=== PATIENT | male | born 1945 | race Caucasian/White ===

== ENCOUNTER → 2016-11-28 | Outpatient (CLI) | payer MEDICARE, OTHER ==
[~2016-11-28] MED LIST: IOHEXOL 350 MG/ML 150 ML (OMNIPAQUE 350) VIAL IV ONE; NS 100 ML (IVPB) BAG IV ONE
[2016-11-28 15:39] LABS: ALBUMIN 3.7 G/DL (3.2-4.5); BILIRUBIN,TOTAL 0.8 MG/DL (0.1-1.0); CALCIUM 8.5 MG/DL (8.5-10.1); CREATININE SERUM 1.49 MG/DL (0.60-1.30); POTASSIUM 3.9 MMOL/L (3.6-5.0); TOTAL PROTEIN 6.4 G/DL (6.4-8.2)
--- NOTE | 2016-11-28 17:29 | Diagnostic Imaging Report ---
PROCEDURE: CT angiography of the chest with contrast. TECHNIQUE: Multiple contiguous axial images were obtained through the chest after uneventful bolus administration of intravenous contrast. Reconstructed CTA MIP acquisitions were also performed. DATE: November 28, 2016. COMPARISON: None. INDICATION: A 71-year-old male, shortness of breath. History of COPD. FINDINGS: There are prominent changes of predominantly centrilobular emphysema. There is no identified pulmonary nodule. There are predominantly linear opacities just above the left hemidiaphragm that likely relate to atelectasis and/or scarring. There is scarring and/or atelectasis in the right middle lobe. There is no additional focal airspace consolidation. There is no pneumothorax. There is no pleural effusion. The central airways are patent. There is no identified pulmonary embolus. The main pulmonary artery is normal in caliber. The heart is not enlarged. There are atherosclerotic calcifications. There are subcentimeter short axis mediastinal lymph nodes which do not meet CT size criteria for adenopathy. There are no abnormally enlarged axillary lymph nodes. There are multiple low-attenuation lesions within the liver. There is a 13 mm lesion in the left lobe of the liver on image 137 with additional low-attenuation lesions in the liver seen on this image also compatible with benign hepatic cysts. There is a low-attenuation lesion in the liver on axial image 159 measuring 9 mm in size which is not able to be definitively characterized with Hounsfield attenuation of 18. Additional limited evaluation of the visualized portions of the upper abdomen is unremarkable. There is no identified acute bony abnormality. IMPRESSION: CT CHEST: 1. Extensive changes of predominantly centrilobular emphysema. 2. No identified pulmonary embolus or acute cardiopulmonary abnormality. Dictated by: Dictated on workstation # [id number]
== END ==
LOC: RAD 14:51
PROVIDERS: ATTEND Nurse Practitioner Family
DX: R06.02 Shortness of breath (principal); R09.02 Hypoxemia; R50.9 Fever, unspecified; J44.9 Chronic obstructive pulmonary disease, unspecified
CPT/HCPCS: 36415; 71275; 80053; 83880; 87070; 87077; 87186; 87205

== ENCOUNTER → 2016-12-27 | Outpatient (CLI) | payer MEDICARE, OTHER ==
[2016-12-27 15:32] LABS: BASOPHILS % (AUTO) 1 % (0-10); EOSINOPHILS # (AUTO) 0.1 10^3/uL (0.0-0.3); EOSINOPHILS % (AUTO) 2 % (0-10); LYMPHOCYTES # (AUTO) 1.9 X 10^3 (1.0-4.0); LYMPHOCYTES % (AUTO) 31 % (12-44); MEAN CORPUSCULAR HEMOGLOBIN 27 PG (25-34); MEAN CORPUSCULAR HGB CONC 32 G/DL (32-36); MEAN CORPUSCULAR VOLUME 84 FL (80-99); MEAN PLATELET VOLUME 9.9 FL (7.4-10.4); MONOCYTES # (AUTO) 0.7 X 10^3 (0.0-1.0); MONOCYTES % (AUTO) 11 % (0-12); NEUTROPHILS # (AUTO) 3.5 X 10^3 (1.8-7.8); NEUTROPHILS % (AUTO) 56 % (42-75); PLATELET COUNT 193 10^3/uL (130-400); RED BLOOD COUNT 4.86 10^6/uL (4.35-5.85); RED CELL DISTRIBUTION WIDTH 16.9 % (10.0-14.5); WHITE BLOOD COUNT 6.2 10^3/uL (4.3-11.0)
[2016-12-27 15:51] LABS: ALBUMIN 3.7 G/DL (3.2-4.5); BILIRUBIN,TOTAL 0.6 MG/DL (0.1-1.0); CALCIUM 9.1 MG/DL (8.5-10.1); CREATININE SERUM 1.42 MG/DL (0.60-1.30); POTASSIUM 4.1 MMOL/L (3.6-5.0); TOTAL PROTEIN 6.5 G/DL (6.4-8.2)
[2016-12-27 15:56] LABS: BAND NEUTROPHILS 1 %; BASOPHILS % (MANUAL) 0 %; EOSINOPHILS % (MANUAL) 2 %; LYMPHOCYTES % (MANUAL) 39 %; NEUTROPHILS % (MANUAL) 55 %
[2016-12-27] MEDS: IOHEXOL 350 MG/ML 150 ML (OMNIPAQUE 350) VIAL IV ONE (15:57)
[2016-12-27] MEDS: NS 100 ML (IVPB) BAG IV ONE (15:58)
--- NOTE | 2016-12-27 16:05 | Diagnostic Imaging Report ---
EXAMINATION: Bilateral lower extremity duplex venous ultrasound. TECHNIQUE: DVT protocol. Multiple sonographic images with color Doppler and waveform interrogation were performed of the lower extremity veins, bilaterally, with compression and augmentation maneuvers. INDICATION: Bilateral leg edema. FINDINGS: The lower extremity veins from the common femoral veins to below the knee veins were examined with normal color-flow, compressibility and normal waveform demonstrated. The great saphenous vein bilaterally is patent. The peroneal vein on the right side and the distal leg is not well seen. IMPRESSION: No evidence of DVT in either lower extremity. Dictated by: Dictated on workstation # [id number]
[2016-12-27 16:32] LABS: ABG BASE EXCESS -2.2 MMOL/L (-2.5-2.5); ABG HCO3 22 MMOL/L (23-27); ABG OXYGEN SATURATION 91 % (94-100); ABG PCO2 37 MMHG (35-45); ABG PH 7.39 (7.37-7.43); ABG PO2 58 MMHG (79-93); ABG TCO2 23.1 MMOL/L (21.0-31.0)
--- NOTE | 2016-12-27 16:37 | Diagnostic Imaging Report ---
PROCEDURE: CT angiography of the chest with contrast. TECHNIQUE: Multiple contiguous axial images were obtained through the chest after uneventful bolus administration of intravenous contrast. Reconstructed CTA MIP acquisitions were also performed. INDICATION: Chest pain, dyspnea and hypoxemia. Comparison is made to study of 11/28/2016. FINDINGS: There is good opacification of pulmonary arteries without intraluminal filling defect identified. Atherosclerotic calcification is noted within the thoracic aorta and great vessels as well as coronary arteries and the mediastinum. Mildly prominent mediastinal lymph nodes are unchanged. There is no significant pleural or pericardial fluid. Extensive centrilobular emphysema is again seen throughout both lungs. There has been mild increase in septal interstitial densities in the periphery of both lungs with a lower lobe predominance. Note is made of replaced common hepatic artery. There are multiple cysts noted in the liver. IMPRESSION: No CTA evidence of acute pulmonary embolism. There is extensive COPD again noted; however, increasing interstitial prominence in the periphery of the lower lobes likely suggests superimposed edema and/or pneumonitis. Dictated by: Dictated on workstation # [id number]
[2016-12-27 16:39] LABS: PATIENT TEMP 98.6
== END ==
LOC: RAD 15:06
PROVIDERS: ATTEND Nurse Practitioner Family
DX: R09.02 Hypoxemia (principal); R06.00 Dyspnea, unspecified; R29.6 Repeated falls; J44.9 Chronic obstructive pulmonary disease, unspecified; R60.0 Localized edema
CPT/HCPCS: 36415; 71275; 80053; 82805; 85007; 85027; 93970

== ENCOUNTER → 2017-10-05 | Outpatient (CLI) | payer MEDICARE, OTHER ==
--- NOTE | 2017-10-05 16:19 | Diagnostic Imaging Report ---
INDICATION: COPD. Possible pneumonia. COMPARISON: No prior chest x-ray for comparison. Comparison is made to prior chest CT dated 12/27/2016. FINDINGS: Two views of the chest are obtained. Heart size is normal. The pulmonary vessels appear unremarkable. There is no pneumothorax, mediastinal widening or pleural fluid. There are chronic findings of COPD with flattening of diaphragms and increased AP diameter of the chest. There is some bilateral basilar scarring. There are patchy alveolar infiltrates scattered throughout both lungs. No pleural fluid is suspected. IMPRESSION: Chronic findings of COPD with suspected patchy bilateral alveolar infiltrate/pneumonia. Short-term followup study is recommended. Dictated by: Dictated on workstation # [id number]
== END ==
LOC: RAD 15:16
PROVIDERS: ATTEND Nurse Practitioner Family
DX: J18.9 Pneumonia, unspecified organism (principal); J43.9 Emphysema, unspecified
CPT/HCPCS: 71046